=== PATIENT | male | born 1995 | race Caucasian/White ===

== ENCOUNTER 2021-04-20 10:50 | Emergency (ER) | payer OTHER ==
[~2021-04-20] VITALS: Ht 170.2 cm; Wt 59.0 kg
[2021-04-20 10:56] VITALS: BP 114/78
[2021-04-20] MEDS ORDERED: MOBIC15 MG PO (12:51)
== END 2021-04-20 13:10 | disposition home or self-care (01) ==
LOC: ER 10:50
DX: S90.32XA Contusion of left foot, initial encounter (principal); F17.210 Nicotine dependence, cigarettes, uncomplicated; W17.89XA Other fall from one level to another, initial encounter; Y93.33 Activity, BASE jumping; Y92.89 Other specified places as the place of occurrence of the external cause; Y99.8 Other external cause status